=== PATIENT | female | born 1990 | race Caucasian/White ===

== ENCOUNTER 2020-11-15 14:05 | Inpatient (IN) | payer OTHER ==
[~2020-11-15 14:05] MED LIST: NORCO 5-325 TA1 EACH PO; PERCOCET 5-3251 EACH PO; ZOFRAN4 MG PO
[2020-11-15 14:46] LABS: HGB 13.7 g/dl (12.5-16.0); MCH 32.9 pg (25.0-31.0); MCHC 34.3 g/dL (32.0-36.0); MCV 95.9 fL (78.0-100.0); MPV 9.4 fL (6.0-9.5); RBC 4.17 M/uL (4.20-5.40); RDW 12.5 % (11.5-14.0); WBC 16.2 K/uL (4.0-10.5)
[2020-11-15 15:04] LABS: BILIRUBIN NEGATIVE (NEGATIVE); BLOOD 3+ Ery/uL (NEGATIVE); CLARITY CLEAR (CLEAR); COLOR YELLOW (YELLOW); GLUCOSE (U) NORMAL (NORMAL); LEUKOCYTES TRACE Leu/uL (NEGATIVE); NITRITE NEGATIVE (NEGATIVE); PROTEIN 1+ mg/dL (NEGATIVE); SPECIFIC GRAVITY >=1.030 (1.001-1.030); UROBILINOGEN 0.2 mg/dL (0.2-1.0)
[2020-11-15 15:13] LABS: BACTERIA 1+; URINARY RBC TNTC; URINARY WBC RARE
[2020-11-16 05:30] LABS: HCT 29.9 % (37.0-47.0); HGB 10.3 g/dl (12.5-16.0); MCH 32.8 pg (25.0-31.0); MCHC 34.4 g/dL (32.0-36.0); MCV 95.2 fL (78.0-100.0); MPV 9.4 fL (6.0-9.5); RBC 3.14 M/uL (4.20-5.40); RDW 12.5 % (11.5-14.0); WBC 16.1 K/uL (4.0-10.5)
[2020-11-16] MEDS ORDERED: FERROUS SULFAT325 MG PO (16:11)
[2020-11-16] MEDS ORDERED: PERCOCET 5-3251 EACH PO (16:11)
[2020-11-16] MEDS ORDERED: PRENATAL FORMU1 EACH PO (16:11)
[2020-11-16] MEDS ORDERED: MOTRIN600 MG PO (16:11)
[2020-11-16] MEDS ORDERED: COLACE100 MG PO (16:11)
== END 2020-11-16 16:33 | disposition home or self-care (01) | DRG 786 ==
LOC: FOB 14:05 → FOD 14:05 → FOB 14:06 → FOD 14:40 → FOB 14:40
PROVIDERS: ADMIT Obstetrics & Gynecology
PROC: 10D00Z1 Extraction of Products of Conception, Low, Open Approach (ICD-10-PCS; principal; 2020-11-15 14:55)
DX: O34.211 Maternal care for low transverse scar from previous cesarean delivery (principal); O60.14X0 Preterm labor third trimester with preterm delivery third trimester, not applicable or unspecified; D62 Acute posthemorrhagic anemia; N85.8 Other specified noninflammatory disorders of uterus; Z3A.36 36 weeks gestation of pregnancy; Z37.0 Single live birth; O90.81 Anemia of the puerperium; Z20.822 Contact with and (suspected) exposure to COVID-19
CPT/HCPCS: 36415; 81001; 86850; 86900; 86901; J0456; J0690; J1885; J2274; J2405; J2550; J3010; J7050; J7120; U0002

== ENCOUNTER 2022-01-16 08:49 | Emergency (ER) | payer OTHER ==
[~2022-01-16 08:49] MED LIST changes: +COLACE100 MG PO; +FERROUS SULFAT325 MG PO; +MOTRIN600 MG PO; +PRENATAL FORMU1 EACH PO
[2022-01-16 09:48] LABS: BASOPHIL 0.5 % (0-2); EOSINOPHIL 2.6 % (0-5); HCT 41.2 % (37.0-47.0); HGB 13.7 g/dl (12.5-16.0); LYMPHOCYTE 37.3 % (15-48); MCH 30.8 pg (25.0-31.0); MCHC 33.3 g/dL (32.0-36.0); MCV 92.6 fL (78.0-100.0); MONOCYTE 4.5 % (0-12); MPV 9.3 fL (6.0-9.5); NEUTROPHIL 54.9 % (41-80); NRBC 0; PLT 248 K/uL (150-400); RBC 4.45 M/uL (4.20-5.40); RDW 12.2 % (11.5-14.0); WBC 6.3 K/uL (4.0-10.5)
[2022-01-16 10:13] LABS: BUN/CREAT RATIO (CALC) 22.7 RATIO; CREATININE 0.66 mg/dL (0.51-0.95); POTASSIUM 3.9 mmol/L (3.5-5.1)
== END 2022-01-16 12:06 | disposition home or self-care (01) ==
LOC: FER 08:49
PROVIDERS: Emergency Medicine
DX: O20.0 Threatened abortion (principal); Z3A.01 Less than 8 weeks gestation of pregnancy
CPT/HCPCS: 36415; 76801; 80048; 84702; 85025; 86900; 86901; 99284